=== PATIENT | male | born 1960 | race Two or more races ===

== ENCOUNTER → 2024-05-17 | Emergency (ER) | payer OTHER ==
[~2024-05-17] VITALS: Ht 175.3 cm; Wt 88.5 kg
[~2024-05-17] MED LIST: COZAAR100 MG PO; FAMOtidine 10 MG/ML (4ML VIAL) IV STA; METOCLOPRAMIDE HCL 5 MG/ML VIAL IV STA; ONDANSETRON HCL 2 MG/ML VIAL IV ONE
[2024-05-17 09:57] LABS: HEMATOCRIT 50.2 % (39.0-48.0); HEMOGLOBIN 17.1 g/dL (13-16.00); MEAN CELL VOLUME 86.1 fL (80.0-100.00); MEAN CORPUSCULAR HEMOGLOBIN 29.3 pg (27.00-32.0); MEAN CORPUSCULAR HGB CONC 34.1 g/dl (32.0-36.0); PLATELET COUNT 359 K/uL (150-450); RED BLOOD COUNT 5.83 M/uL (4.00-6.00); RED CELL DISTRIBUTION WIDTH 13.5 % (11.5-14.5)
[2024-05-17 10:18] LABS: BILIRUBIN TOTAL 0.73 mg/dL (0.3-1.2); BILIRUBIN,CONJUGATED 0.2 mg/dL (0.0-0.2); BILIRUBIN,UNCONJUGATED 0.53 mg/dL (0.0-0.6); CALCIUM 9.6 mg/dL (8.5-10.1); CREATININE SERUM 1.16 mg/dL (0.70-1.30); GFR 63.79; POTASSIUM 3.25 mEq/L (3.5-5.1); TOTAL PROTEIN 8.2 gm/dL (6.4-8.2)
[2024-05-17 11:26] LABS: PH,URINE 6.5 (5.0-8.0); URINE APPEARANCE Clear; URINE BILIRRUBIN Negative (NEGATIVE); URINE BLOOD Small; URINE COLOR Yellow; URINE GLUCOSE Negative (NEGATIVE); URINE LEUKOCYTE Negative; URINE NITRATE Negative; URINE PROTEIN Trace (NEGATIVE)
[2024-05-17 11:30] LABS: URINE EPITHELIAL CELLS 3.2 uL (0.0-38.8); URINE RBC 149.9 uL (0.0-20.8)
[2024-05-17 11:43] LABS: URINE BACTERIA 3.7 uL (0.0-1933)
== END | disposition home or self-care (01) ==
LOC: ER 08:43
PROVIDERS: General Practice
DX: R10.9 Unspecified abdominal pain (principal); Z91.041 Radiographic dye allergy status; Z91.013 Allergy to seafood; Z88.6 Allergy status to analgesic agent; I10 Essential (primary) hypertension; R31.9 Hematuria, unspecified